=== PATIENT | female | born 1955 | race Caucasian/White ===

== ENCOUNTER → 2025-02-14 | Day surgery (SDC) | payer MEDICARE, OTHER ==
[~2025-02-14] MED LIST: ACETAMINOPHEN 1000 MG/100 ML 100 ML IV ONE; BUPIVACAINE 0.25% 30ML SDV ONE; BUPIVACAINE 0.5%/EPI 30 ML SDV INJ ONE; BYSTOLIC10 MG PO; CHLORDIAZEPO-A1 EACH PO; CITALOPRAM HBR20 MG PO; CYCLOBENZAPRINE10 MG PO; DEXAMETHASONE SOD PHOS INJ 4 MG/ML SDV ONE; DIOVAN160 MG PO; DULOXETINE HCL60 MG PO; EPHEDRINE SULFATE INJ 50 MG/ML VIAL ONE; FENTANYL CITRATE/PF 100MCG/2 ML INJ ONE; LIDOCAINE HCL 2% LOCAL INJ 5 ML SDV VIAL INJ ONE; LORAZEPAM0.5 MG PO; LOSARTAN POTAS100 MG PO; MIDAZOLAM HCL 2 MG/2 ML VIAL ONE; NEURONTIN100 MG PO; NORCO 10-325 T1 EACH PO; ONDANSETRON HCL INJ 2MG/ML 2ML 2 MG/ML VIAL ONE; OZEMPIC2 MG/0.75 SC; PLAQUENIL200 MG PO; PROPOFOL IV EMULSION 10 MG/ML 20 ML VIAL ONE; QULIPTA60 MG PO; SEVOFLURANE INHAL SOLN 250 ML PEN BTL ONE; SINEMET 25-1001 EACH PO; TEMAZEPAM30 MG PO; TRAZODONE HCL100 MG PO; VITAMIN D31250 MCG PO; VOLTAREN100 GM TOP; ZPAK
[2025-02-14 08:18] LABS: BASOPHILS % 0.4 % (0.0-1.0); EOSINOPHILS % 1.1 % (0.0-6.0); LYMPHOCYTES % 38.5 % (18.0-39.1); MONOCYTES % 5.9 % (4.4-11.3); NEUTROPHILS % 53.8 % (38.7-80.0); RED CELL DISTRIBUTION WIDTH 12.4 % (11.7-14.4)
[2025-02-14 08:50] LABS: EST GLOMERULAR FILTRATION RATE 72.0 ML/MIN (>=60)
[2025-02-14 13:45] VITALS: BP 140/81; PULSE 82; RESP 16; O2SAT 98
== END | disposition home or self-care (01) ==
LOC: OR 08:02
PROVIDERS: ATTEND Podiatrist Foot & Ankle Surgery
DX: M20.21 Hallux rigidus, right foot (principal); M06.9 Rheumatoid arthritis, unspecified; G89.29 Other chronic pain; I10 Essential (primary) hypertension; F41.9 Anxiety disorder, unspecified; F32.A Depression, unspecified; G47.33 Obstructive sleep apnea (adult) (pediatric); G20.C Parkinsonism, unspecified; Z79.899 Other long term (current) drug therapy; Z79.85 Long-term (current) use of injectable non-insulin antidiabetic drugs; Z91.040 Latex allergy status; Z01.810 Encounter for preprocedural cardiovascular examination; Z01.812 Encounter for preprocedural laboratory examination
CPT/HCPCS: 28750; 36415; 71046; 80048; 82948; 85025; 93005; C1713 ×6; C1734; J0131; J0690; J1100; J2003; J2250; J2405; J2704; J3010; 76000